=== PATIENT | female | born 1960 | race Asian ===

== ENCOUNTER 2017-08-03 08:34 | Emergency (ER) | payer MEDICAID ==
[~2017-08-03] VITALS: Ht 160 cm; Wt 73.0 kg
[2017-08-03 12:13] VITALS: BP 142/91
== END 2017-08-03 12:43 | disposition home or self-care (01) ==
LOC: ER 09:00
DX: M79.645 Pain in left finger(s) (principal); W86.8XXA Exposure to other electric current, initial encounter; Y93.E9 Activity, other interior property and clothing maintenance; Y92.89 Other specified places as the place of occurrence of the external cause; Y99.8 Other external cause status
CPT/HCPCS: 99282

== ENCOUNTER 2023-11-01 20:06 | Emergency (ER) | payer MEDICAID, OTHER ==
[~2023-11-01] VITALS: Ht 157.5 cm; Wt 73.0 kg
[2023-11-01 20:16] VITALS: O2SAT 100
[2023-11-01] MEDS: IBUPROFEN 600MG TABLET PO ONE (22:21)
[2023-11-01] MEDS ORDERED: NAPR-1176 MT (22:56)
[2023-11-01] MEDS ORDERED: CYCL10TA21 MT (22:56)
[2023-11-01 23:01] VITALS: BP 151/82; PULSE 103; RESP 16; TEMP 98.1
== END 2023-11-01 23:05 | disposition home or self-care (01) ==
LOC: ER 20:06
DX: M25.512 Pain in left shoulder (principal); M75.32 Calcific tendinitis of left shoulder
CPT/HCPCS: 73030; 93005; 99283; A4565